=== PATIENT | female | born 1935 | race Caucasian/White ===

== ENCOUNTER 2018-03-07 22:19 | Inpatient (IN) | payer MEDICARE, OTHER ==
[~2018-03-07] VITALS: Ht 167.6 cm; Wt 79.7 kg
[2018-03-07] MEDS ORDERED: SODIUM CHLORIDE FLUSH 10ML SYR IVF ONE (23:00)
[2018-03-07] MEDS ORDERED: METOCLOPRAMIDE 5 MG/ML, 2ML IVPush ONE (23:00)
[2018-03-07] MEDS ORDERED: SODIUM CHLORIDE 0.9% 1,000ML IVBOLUS ONE (23:00)
[2018-03-07] MEDS ORDERED: METOCLOPRAMIDE 5 MG/ML, 2ML ONE (23:08)
[2018-03-07 23:23] LABS: MEAN CORPUSCULAR HEMOGLOBIN 29.8 pg (27.0-34.8); MEAN CORPUSCULAR HGB CONC 32.3 g/dL (32.4-35.8); MEAN CORPUSCULAR VOLUME 92.3 fL (80-100); MEAN PLATELET VOLUME 8.3 fL (7.4-10.4); PLATELET COUNT 202 x10^3/uL (130-400); RED BLOOD COUNT 4.52 x10^6/uL (3.82-5.3); RED CELL DISTRIBUTION WIDTH 15.3 % (9.6-15.2)
[2018-03-07] MEDS ORDERED: AMPICILLIN/SULBACTAM 3 GM in SODIUM CHLORIDE 0.9% 100 ML IV ONE (23:30)
[2018-03-07] MEDS ORDERED: VANCOMYCIN PER PHARMACY MC PRN (23:30)
[2018-03-07 23:33] LABS: ALBUMIN 3.1 g/dL (3.4-5.0); ANION GAP 8 mmol/L (5-15); CALCIUM 8.6 mg/dL (8.5-10.1); CHLORIDE 103 mmol/L (98-107); CREATININE 1.06 mg/dL (0.55-1.02)
[2018-03-07] MEDS ORDERED: PHARMACOKINETIC CONSULTATION MC ONE (23:45)
[2018-03-08] MEDS ORDERED: VANCOMYCIN 1,400 MG in SODIUM CHLORIDE 0.9% 250 ML IV ONE
[2018-03-08 00:05] LABS: BASOPHILS # (AUTO) 0.01 x10^3/uL (0-0.1); BASOPHILS % (AUTO) 0 % (0-1); EOSINOPHILS # (AUTO) 0.01 x10^3/uL (0-0.4); EOSINOPHILS % (AUTO) 0 % (1-7); LYMPHOCYTES # (AUTO) 1.06 x10^3/uL (1-3.4); LYMPHOCYTES % (AUTO) 4 % (22-44); MD SCAN; MONOCYTES # (AUTO) 1.44 x10^3/uL (0.2-0.8); MONOCYTES % (AUTO) 5 % (2-9); NEUTROPHILS # (AUTO) 26.46 x10^3/uL (1.8-6.8); NEUTROPHILS % (AUTO) 91 % (42-75)
[2018-03-08] MEDS ORDERED: OMNIPAQUE 350 MG/ML, 100ML BOTTLE ONE (00:47)
[2018-03-08] MEDS ORDERED: DIPH1TAB PO (01:01)
[2018-03-08] MEDS ORDERED: APIX2.5T PO (01:01)
[2018-03-08] MEDS ORDERED: PARO10TA3 PO (01:01)
[2018-03-08] MEDS ORDERED: CEPH-368 PO (01:01)
[2018-03-08] MEDS ORDERED: HYDR-3240 PO (01:01)
[2018-03-08] MEDS ORDERED: SOTA80TA PO (01:01)
[2018-03-08] MEDS ORDERED: LEVO25TA4 PO (01:01)
[2018-03-08] MEDS ORDERED: SODIUM CHLORIDE 0.9% 1,000ML IVBOLUS ONE (01:30)
[2018-03-08] MEDS ORDERED: SODIUM CHLORIDE 0.9% 1,000 ML IV ONE (01:55)
[2018-03-08] MEDS ORDERED: ONDANSETRON 2MG/ML, 2ML IVPush PRN (02:00)
[2018-03-08 02:07] LABS: TROPONIN I < 0.015 ng/mL (0.000-0.045)
[2018-03-08] MEDS ORDERED: hydrALAzine 20 MG/ML, 1ML IVPush PRN (02:30)
[2018-03-08] MEDS ORDERED: POLYETHYLENE GLYCOL 17 GM PACKET PO PRN (02:30)
[2018-03-08] MEDS ORDERED: BISACODYL 10 MG SUPP PR PRN (02:30)
[2018-03-08] MEDS ORDERED: ONDANSETRON ODT 4 MG PO PRN (02:30)
[2018-03-08] MEDS ORDERED: DOCUSATE 100 MG CAPSULE PO PRN (02:30)
[2018-03-08] MEDS ORDERED: morphine SULFATE 10 MG/ML, 1ML IVPush PRN (02:30)
[2018-03-08 02:37] LABS: MICROSCOPIC NOT IND
[2018-03-08 02:39] LABS: CULTURE INDICATED? NO
[2018-03-08 03:09] LABS: FREE T4 (FREE THYROXINE) 1.14 ng/dL (0.76-1.46); THYROID STIMULATING HORMONE 2.26 mIU/L (0.358-3.740)
[2018-03-08 03:30] LABS: HEMOGLOBIN A1C 5.4 % (4.2-6.3)
[2018-03-08 03:34] VITALS: BP 107/64
[2018-03-08] MEDS: SODIUM CHLORIDE 0.9% 1,000 ML IV SCH ×3 (04:52→23:28)
[2018-03-08] MEDS: PIPERACILLIN/TAZO/PMX 3.375GM 50 ML IV SCH ×4 (04:55→23:26)
[2018-03-08] MEDS: LEVOTHYROXINE 25 MCG TABLET PO SCH (05:00)
[2018-03-08 06:40] VITALS: BP 109/66
[2018-03-08 09:10] VITALS: BP 101/63
[2018-03-08] MEDS: SOTALOL 80MG TABLET PO SCH ×2 (09:15→20:34)
[2018-03-08] MEDS: PAROXETINE 10 MG TABLET PO SCH (09:15)
[2018-03-08] MEDS ORDERED: FENTANYL PF 100 MCG/2ML ONE (12:20)
[2018-03-08] MEDS ORDERED: MORPHINE SULFATE 4 MG/ML, 1ML IVPush PRN (12:30)
[2018-03-08] MEDS ORDERED: hydrALAzine 20 MG/ML, 1ML IV PRN (12:30)
[2018-03-08] MEDS ORDERED: LIDOCAINE/PF 1%, 30ML ONE (12:30)
[2018-03-08] MEDS ORDERED: OXYcodone 5 MG/5 ML ORAL.SOL UDC PO PRN (12:30)
[2018-03-08] MEDS ORDERED: ACETAMINOPHEN 325 MG TABLET PO PRN (12:30)
[2018-03-08] MEDS ORDERED: LABETALOL 5MG/ML, 20ML IV PRN (12:30)
[2018-03-08] MEDS ORDERED: EPINEPHRINE 1 MG/ML, 1ML ONE (12:30)
[2018-03-08] MEDS ORDERED: FENTANYL PF 100 MCG/2ML IV PRN (12:30)
[2018-03-08] MEDS ORDERED: ONDANSETRON ODT 8 MG PO PRN (12:30)
[2018-03-08] MEDS ORDERED: PROMETHAZINE 12.5 MG SUPP PR PRN (12:30)
[2018-03-08] MEDS ORDERED: HYDROmorphone 1 MG/ML, 1ML IV PRN (12:30)
[2018-03-08] MEDS ORDERED: BACITRACIN 50,000 UNIT ONE (12:31)
[2018-03-08] MEDS ORDERED: DEXAMETHASONE 4 MG/ML, 1ML ONE (13:11)
[2018-03-08] MEDS ORDERED: PROPOFOL 10 MG/ML, 20ML ONE (13:13)
[2018-03-08] MEDS ORDERED: KETOROLAC 30 MG/1 ML ONE (13:18)
[2018-03-08] MEDS ORDERED: ONDANSETRON 2MG/ML, 2ML ONE (13:20)
[2018-03-08] MEDS ORDERED: EPHEDRINE 50 MG/ML, 1ML ONE (14:33)
[2018-03-08] MEDS ORDERED: EPHEDRINE 50 MG/ML, 1ML IVPush ONE (15:00)
[2018-03-08 20:00] VITALS: BP 98/61
[2018-03-09 02:00] VITALS: BP 96/60
[2018-03-09] MEDS: PIPERACILLIN/TAZO/PMX 3.375GM 50 ML IV SCH ×3 (05:20→18:40)
[2018-03-09] MEDS: LEVOTHYROXINE 25 MCG TABLET PO SCH (05:20)
[2018-03-09 05:38] LABS: MEAN CORPUSCULAR HEMOGLOBIN 30.4 pg (27.0-34.8); MEAN CORPUSCULAR HGB CONC 32.5 g/dL (32.4-35.8); MEAN CORPUSCULAR VOLUME 93.3 fL (80-100); MEAN PLATELET VOLUME 8.5 fL (7.4-10.4); PLATELET COUNT 148 x10^3/uL (130-400); RED BLOOD COUNT 3.64 x10^6/uL (3.82-5.3); RED CELL DISTRIBUTION WIDTH 15.2 % (9.6-15.2)
[2018-03-09 05:47] LABS: ALBUMIN 2.2 g/dL (3.4-5.0); ANION GAP 8 mmol/L (5-15); CALCIUM 8.1 mg/dL (8.5-10.1); CHLORIDE 111 mmol/L (98-107)
[2018-03-09 05:51] LABS: ALANINE AMINOTRANSFERASE 52 U/L (12-78); ALKALINE PHOSPHATASE 116 U/L (45-117); BILIRUBIN,TOTAL 0.6 mg/dL (0.2-1.0); CHOL/HDL RATIO 2.3; CHOLESTEROL, TOTAL 105 mg/dL (140-239); CREATININE 0.74 mg/dL (0.55-1.02); HDL CHOL % 44 % (28-40); HDL CHOLESTEROL (DIRECT) 46 mg/dL (40-60); LDL CHOLESTEROL,CALCULATED 43 mg/dL (54-169); LDL/HDL RATIO 0.9 (0.5-3.0); TOTAL PROTEIN 5.4 g/dL (6.4-8.2); TRIGLYCERIDES 78 mg/dL (50-200); VLDL CHOLESTEROL 16 mg/dL (0-25)
[2018-03-09 06:08] LABS: MD YES
[2018-03-09 06:10] LABS: <RBC MORPHOLOGY> NORMAL; BAND#(MANUAL) 2.37 x10^3/uL; BANDS%(MANUAL) 11 % (0-7); LYMPH#(MANUAL) 1.94 x10^3/uL (1-3.4); LYMPHS% (MANUAL) 9 % (22-44); MONOS#(MANUAL) 0.65 x10^3/uL (0.3-2.7); MONOS% (MANUAL) 3 % (2-9); SEG#(MANUAL) 16.56 x10^3/uL (1.8-6.8); SEGS% (MANUAL) 77 % (42-75)
[2018-03-09 06:11] LABS: <PLATELET ESTIMATE> ADEQUATE; <PLT MORPHOLOGY> NORMAL PLT MORPH
[2018-03-09 07:10] VITALS: BP 102/58
[2018-03-09 09:25] VITALS: BP 109/68
[2018-03-09] MEDS: ENOXAPARIN 40 MG/0.4 ML SQ SCH (09:25)
[2018-03-09] MEDS: SODIUM CHLORIDE 0.9% 1,000 ML IV SCH (09:25)
[2018-03-09] MEDS: SOTALOL 80MG TABLET PO SCH ×2 (09:26→20:57)
[2018-03-09] MEDS: PAROXETINE 10 MG TABLET PO SCH (09:26)
[2018-03-09 15:51] VITALS: BP 120/74
[2018-03-09 20:00] VITALS: BP 127/78
[2018-03-09] MEDS: ACETAMINOPHEN 325 MG TABLET PO PRN (23:57)
[2018-03-10] MEDS: PIPERACILLIN/TAZO/PMX 3.375GM 50 ML IV SCH ×3 (00:38→17:11)
[2018-03-10] MEDS: SODIUM CHLORIDE 0.9% 1,000 ML IV SCH ×2 (00:39→17:12)
[2018-03-10 02:00] VITALS: BP 123/73
[2018-03-10] MEDS: ACETAMINOPHEN 325 MG TABLET PO PRN (04:10)
[2018-03-10] MEDS: LEVOTHYROXINE 25 MCG TABLET PO SCH (05:27)
[2018-03-10 06:02] LABS: BASOPHILS # (AUTO) 0.02 x10^3/uL (0-0.1); BASOPHILS % (AUTO) 0 % (0-1); EOSINOPHILS # (AUTO) 0.35 x10^3/uL (0-0.4); EOSINOPHILS % (AUTO) 3 % (1-7); LYMPHOCYTES # (AUTO) 1.94 x10^3/uL (1-3.4); LYMPHOCYTES % (AUTO) 16 % (22-44); MD NO; MEAN CORPUSCULAR HEMOGLOBIN 30.9 pg (27.0-34.8); MEAN CORPUSCULAR HGB CONC 32.9 g/dL (32.4-35.8); MEAN CORPUSCULAR VOLUME 94.1 fL (80-100); MEAN PLATELET VOLUME 8.7 fL (7.4-10.4); MONOCYTES # (AUTO) 0.53 x10^3/uL (0.2-0.8); MONOCYTES % (AUTO) 4 % (2-9); NEUTROPHILS # (AUTO) 9.31 x10^3/uL (1.8-6.8); NEUTROPHILS % (AUTO) 77 % (42-75); PLATELET COUNT 184 x10^3/uL (130-400); RED BLOOD COUNT 3.89 x10^6/uL (3.82-5.3); RED CELL DISTRIBUTION WIDTH 15.9 % (9.6-15.2)
[2018-03-10 06:26] LABS: HEMOGLOBIN A1C 5.4 % (4.2-6.3)
[2018-03-10 07:45] VITALS: BP 130/78
[2018-03-10] MEDS: ENOXAPARIN 40 MG/0.4 ML SQ SCH (07:46)
[2018-03-10] MEDS: SOTALOL 80MG TABLET PO SCH ×2 (07:46→21:49)
[2018-03-10] MEDS: PAROXETINE 10 MG TABLET PO SCH (07:46)
[2018-03-10 15:13] VITALS: BP 150/76
[2018-03-10] MEDS: LACTOBACILLUS CHEW TABLET PO SCH ×2 (17:11→21:49)
[2018-03-10 20:00] VITALS: BP 146/79
[2018-03-10] MEDS: TEMAZEPAM 15 MG CAPSULE PO PRN (21:48)
[2018-03-10] MEDS: ONDANSETRON 2MG/ML, 2ML IVPush PRN (21:49)
[2018-03-11] MEDS: PIPERACILLIN/TAZO/PMX 3.375GM 50 ML IV SCH ×5 (00:05→23:49)
[2018-03-11 02:00] VITALS: BP 132/80
[2018-03-11] MEDS: LEVOTHYROXINE 25 MCG TABLET PO SCH (05:39)
[2018-03-11 08:00] VITALS: BP 146/83
[2018-03-11] MEDS: ENOXAPARIN 40 MG/0.4 ML SQ SCH (08:29)
[2018-03-11] MEDS: LACTOBACILLUS CHEW TABLET PO SCH ×3 (08:30→21:39)
[2018-03-11] MEDS: SOTALOL 80MG TABLET PO SCH ×2 (08:30→21:40)
[2018-03-11] MEDS: PAROXETINE 10 MG TABLET PO SCH (08:30)
[2018-03-11] MEDS: ONDANSETRON 2MG/ML, 2ML IVPush PRN ×2 (08:39→21:43)
[2018-03-11 10:41] LABS: CLOSTRIDIUM DIFFICILE ANTIGEN NEGATIVE; CLOSTRIDIUM DIFFICILE TOXIN NEGATIVE (Negative)
[2018-03-11] MEDS: SODIUM CHLORIDE 0.9% 1,000 ML IV SCH (11:12)
[2018-03-11 15:06] VITALS: BP 139/71
[2018-03-11 20:11] VITALS: BP 144/80
[2018-03-11] MEDS: TEMAZEPAM 15 MG CAPSULE PO PRN (21:40)
[2018-03-12 01:20] VITALS: BP 136/75
[2018-03-12] MEDS: SODIUM CHLORIDE 0.9% 1,000 ML IV SCH ×2 (02:37→20:14)
[2018-03-12] MEDS: ACETAMINOPHEN 325 MG TABLET PO PRN (03:44)
[2018-03-12] MEDS: PIPERACILLIN/TAZO/PMX 3.375GM 50 ML IV SCH (05:15)
[2018-03-12] MEDS: LEVOTHYROXINE 25 MCG TABLET PO SCH (05:18)
[2018-03-12] MEDS: OXYcodone IR 5MG TABLET PO PRN (06:11)
[2018-03-12] MEDS ORDERED: CEFAZOLIN 1,000 MG IM SCH (08:00)
[2018-03-12] MEDS: PAROXETINE 10 MG TABLET PO SCH (09:18)
[2018-03-12] MEDS: LACTOBACILLUS CHEW TABLET PO SCH ×3 (09:18→20:14)
[2018-03-12] MEDS: SOTALOL 80MG TABLET PO SCH ×2 (09:18→20:14)
[2018-03-12] MEDS: ENOXAPARIN 40 MG/0.4 ML SQ SCH (09:18)
[2018-03-12 12:27] VITALS: BP 162/82
[2018-03-12] MEDS: ERTAPENEM 1 GM in SODIUM CHLORIDE 0.9% 50 ML IV SCH (15:46)
[2018-03-12] MEDS ORDERED: DIPHENOXYLATE/ATROPINE TABLET PO PRN (16:30)
[2018-03-12 19:57] VITALS: BP 150/72
[2018-03-12] MEDS: TEMAZEPAM 15 MG CAPSULE PO PRN (21:21)
[2018-03-13 02:03] VITALS: BP 139/67
[2018-03-13] MEDS: OXYcodone IR 5MG TABLET PO PRN (02:55)
[2018-03-13] MEDS: LEVOTHYROXINE 25 MCG TABLET PO SCH (05:28)
[2018-03-13 08:12] VITALS: BP 171/91
[2018-03-13] MEDS: LACTOBACILLUS CHEW TABLET PO SCH (09:10)
[2018-03-13] MEDS: SOTALOL 80MG TABLET PO SCH (09:11)
[2018-03-13] MEDS: PAROXETINE 10 MG TABLET PO SCH (09:11)
[2018-03-13] MEDS: ENOXAPARIN 40 MG/0.4 ML SQ SCH (09:11)
[2018-03-13] MEDS: ERTAPENEM 1 GM in SODIUM CHLORIDE 0.9% 50 ML IV SCH (09:11)
[2018-03-13] MEDS: SODIUM CHLORIDE 0.9% 1,000 ML IV SCH (12:00)
[2018-03-13] MEDS ORDERED: DIPH1TAB6 PO (12:37)
[2018-03-13] MEDS ORDERED: ACID1TAB7 PO (12:37)
[2018-03-13] MEDS ORDERED: ACET325T14 PO (12:37)
== END 2018-03-13 14:12 | disposition home or self-care (01) | DRG 856 ==
LOC: ED 03-08 00:07 → EDIP 03-08 01:55 → 4WST 03-08 02:53
PROVIDERS: ADMIT Internal Medicine; ATTEND Internal Medicine
PROC: 0JB60ZZ Excision of Chest Subcutaneous Tissue and Fascia, Open Approach (ICD-10-PCS; principal; 2018-03-08 13:15)
PROC: 02HV33Z Insertion of Infusion Device into Superior Vena Cava, Percutaneous Approach (ICD-10-PCS; 2018-03-12)
PROC: B5181ZA Fluoroscopy of Superior Vena Cava using Low Osmolar Contrast, Guidance (ICD-10-PCS; 2018-03-12)
PROC: B548ZZA Ultrasonography of Superior Vena Cava, Guidance (ICD-10-PCS; 2018-03-12)
DX: T81.4XXA Infection following a procedure, initial encounter (principal); A41.9 Sepsis, unspecified organism; N17.0 Acute kidney failure with tubular necrosis; R65.20 Severe sepsis without septic shock; L02.213 Cutaneous abscess of chest wall; D68.59 Other primary thrombophilia; E44.1 Mild protein-calorie malnutrition; L03.313 Cellulitis of chest wall; L76.34 Postprocedural seroma of skin and subcutaneous tissue following other procedure; N61.1 Abscess of the breast and nipple; R73.9 Hyperglycemia, unspecified; Y83.8 Other surgical procedures as the cause of abnormal reaction of the patient, or of later complication, without mention of misadventure at the time of the procedure; B95.61 Methicillin susceptible Staphylococcus aureus infection as the cause of diseases classified elsewhere; E03.9 Hypothyroidism, unspecified; G47.00 Insomnia, unspecified; I48.2 Chronic atrial fibrillation; N95.1 Menopausal and female climacteric states; Z79.01 Long term (current) use of anticoagulants; Z79.2 Long term (current) use of antibiotics; Z90.13 Acquired absence of bilateral breasts and nipples; Z85.3 Personal history of malignant neoplasm of breast; Z90.710 Acquired absence of both cervix and uterus; Z92.21 Personal history of antineoplastic chemotherapy; Z92.3 Personal history of irradiation; Z98.82 Breast implant status; Y92.89 Other specified places as the place of occurrence of the external cause; Z88.2 Allergy status to sulfonamides; Z88.8 Allergy status to other drugs, medicaments and biological substances; Z91.041 Radiographic dye allergy status; Z79.899 Other long term (current) drug therapy; Z90.49 Acquired absence of other specified parts of digestive tract; Z68.28 Body mass index [BMI] 28.0-28.9, adult
CPT/HCPCS: 36415; 36569; 71045; 71260; 76937; 77001; 80048; 80053; 80061; 81003; 82040; 83036; 83605; 83735; 84145; 84439; 84443; 84484; 85025; 87040; 87070; 87075; 87077; 87186; 87205; 87324; 93005; 96365; 96375; J0171; J0295; J0690; J1100; J1335; J1650; J1885; J2405; J2543; J2704; J3010; J3370; J3490; Q0162; Q9967; C1751; J2765; J7030; J7050

== ENCOUNTER 2019-02-27 21:49 | Inpatient (IN) | payer MEDICARE ==
[~2019-02-27] VITALS: Ht 170.2 cm; Wt 80.0 kg
[~2019-02-27 21:49] MED LIST: ACET325T14 PO; ACID1TAB7 PO; APIX2.5T PO; CEPH-368 PO; DIPH1TAB PO; DIPH1TAB6 PO; HYDR-3240 PO; LEVO25TA4 PO; PARO10TA3 PO; SOTA80TA PO
[2019-02-27] MEDS ORDERED: HYDROcodone/APAP 10/325 MG TABLET ONE (22:39)
--- NOTE | 2019-02-27 22:43 | NUR ---
REPORT RECEIVED FROM DARIN AMADOR.
[2019-02-27] MEDS ORDERED: HYDROcodone/APAP 10/325 MG TABLET PO ONE (23:00)
--- NOTE | 2019-02-27 23:18 | NUR ---
PT IN XRAY NOW.
--- NOTE | 2019-02-27 23:39 | NUR ---
PT REQUESTING PAIN MED. PT'S PAIN LEVEL IS 9/10 AT THIS TIME. PA NOTIFIED.
[2019-02-28] MEDS ORDERED: OXYcodone/APAP 10/325MG TABLET PO ONE
[2019-02-28] MEDS ORDERED: OXYcodone/APAP 10/325MG TABLET ONE (00:06)
[2019-02-28 00:22] LABS: BASOPHILS # (AUTO) 0.05 x10^3/uL (0-0.1); BASOPHILS % (AUTO) 0 % (0-1); EOSINOPHILS # (AUTO) 0.04 x10^3/uL (0-0.4); EOSINOPHILS % (AUTO) 0 % (1-7); LYMPHOCYTES # (AUTO) 1.11 x10^3/uL (1-3.4); LYMPHOCYTES % (AUTO) 7 % (22-44); MD NO; MEAN CORPUSCULAR HEMOGLOBIN 29.9 pg (27.0-34.8); MEAN CORPUSCULAR HGB CONC 31.7 g/dL (32.4-35.8); MEAN CORPUSCULAR VOLUME 94.5 fL (80-100); MEAN PLATELET VOLUME 8.3 fL (7.4-10.4); MONOCYTES # (AUTO) 0.54 x10^3/uL (0.2-0.8); MONOCYTES % (AUTO) 3 % (2-9); NEUTROPHILS # (AUTO) 15.37 x10^3/uL (1.8-6.8); NEUTROPHILS % (AUTO) 90 % (42-75); PLATELET COUNT 232 x10^3/uL (130-400); RED BLOOD COUNT 4.85 x10^6/uL (3.82-5.3); RED CELL DISTRIBUTION WIDTH 16.2 % (9.6-15.2)
[2019-02-28 00:30] LABS: ALANINE AMINOTRANSFERASE 44 U/L (12-78); ALBUMIN 3.7 g/dL (3.4-5.0); ANION GAP 9 mmol/L (5-15); CALCIUM 8.6 mg/dL (8.5-10.1); CHLORIDE 109 mmol/L (98-107); CREATININE 0.76 mg/dL (0.55-1.02)
[2019-02-28 00:32] LABS: ALKALINE PHOSPHATASE 144 U/L (45-117); BILIRUBIN,TOTAL 0.5 mg/dL (0.2-1.0); TOTAL PROTEIN 7.1 g/dL (6.4-8.2)
[2019-02-28] MEDS ORDERED: SODIUM CHLORIDE 0.9% 1,000 ML IV ONE (01:08)
[2019-02-28] MEDS ORDERED: MORPHINE SULFATE 4 MG/ML, 1ML ONE (01:24)
[2019-02-28] MEDS ORDERED: ONDANSETRON 2MG/ML, 2ML IVPush PRN ×2 (01:30→05:30)
[2019-02-28] MEDS ORDERED: MORPHINE SULFATE 4 MG/ML, 1ML IVPush PRN (01:30)
[2019-02-28] MEDS ORDERED: ONDANSETRON 2MG/ML, 2ML ONE (01:38)
[2019-02-28 02:17] VITALS: BP 109/71
[2019-02-28] MEDS: morphine SULFATE 10 MG/ML, 1ML IVPush PRN ×3 (06:42→21:03)
[2019-02-28 08:50] VITALS: BP 104/68
[2019-02-28] MEDS ORDERED: PANT40TA3 PO (09:35)
[2019-02-28] MEDS: D5%-0.45NACL+KCL 20MEQ 1,000 ML IV SCH (09:42)
[2019-02-28] MEDS: SOTALOL 80MG TABLET PO SCH ×2 (10:03→21:03)
[2019-02-28] MEDS: LACTOBACILLUS CHEW TABLET PO SCH ×3 (10:03→21:03)
[2019-02-28] MEDS: PAROXETINE 10 MG TABLET PO SCH (10:03)
[2019-02-28] MEDS: PANTOPROZOLE 40MG TABLET PO SCH (10:04)
[2019-02-28] MEDS: LEVOTHYROXINE 100 MCG TABLET PO SCH (10:04)
[2019-02-28 10:28] LABS: INTERNATIONAL NORMALIZED RATIO 0.98 (0.93-1.1); PROTHROMBIN TIME 10.3 Seconds (9.6-11.5)
[2019-02-28] MEDS: DOCUSATE 100 MG CAPSULE PO SCH ×2 (12:04→21:04)
[2019-02-28 13:56] VITALS: BP 137/78
[2019-02-28] MEDS: HYDROcodone/APAP 5/325 TABLET PO PRN ×2 (18:10→22:49)
[2019-02-28 20:10] VITALS: BP 112/57
[2019-03-01 02:18] VITALS: BP 112/60
[2019-03-01] MEDS: D5%-0.45NACL+KCL 20MEQ 1,000 ML IV SCH ×2 (03:39→04:00)
[2019-03-01] MEDS: HYDROcodone/APAP 5/325 TABLET PO PRN ×2 (06:18→10:14)
[2019-03-01 07:47] VITALS: BP 117/59
[2019-03-01] MEDS: DOCUSATE 100 MG CAPSULE PO SCH ×2 (07:59→21:00)
[2019-03-01] MEDS: SOTALOL 80MG TABLET PO SCH ×2 (07:59→21:00)
[2019-03-01] MEDS: LACTOBACILLUS CHEW TABLET PO SCH ×3 (07:59→21:00)
[2019-03-01] MEDS: PAROXETINE 10 MG TABLET PO SCH (07:59)
[2019-03-01] MEDS: PANTOPROZOLE 40MG TABLET PO SCH (08:00)
[2019-03-01] MEDS: LEVOTHYROXINE 100 MCG TABLET PO SCH (08:00)
[2019-03-01] MEDS ORDERED: ONDANSETRON 2MG/ML, 2ML ONE (10:25)
[2019-03-01] MEDS ORDERED: CEFAZOLIN 1,000 MG ONE (10:25)
[2019-03-01] MEDS ORDERED: SUCCINYLCHOLINE 20 MG/ML, 10ML ONE (10:25)
[2019-03-01] MEDS ORDERED: PROPOFOL 10 MG/ML, 20ML ONE (10:25)
[2019-03-01] MEDS ORDERED: EPHEDRINE 50 MG/ML, 1ML ONE (10:25)
[2019-03-01] MEDS ORDERED: DEXAMETHASONE 4 MG/ML, 1ML ONE (10:25)
[2019-03-01 15:16] VITALS: BP 104/63
[2019-03-01] MEDS: morphine SULFATE 10 MG/ML, 1ML IVPush PRN (16:35)
[2019-03-01] MEDS ORDERED: VANCOMYCIN 1,000 MG ONE (17:24)
[2019-03-01] MEDS ORDERED: FENTANYL PF 250 MCG/5ML ONE (17:58)
[2019-03-01] MEDS ORDERED: HYDROmorphone 2 MG/ML, 1ML IVPush PRN (19:30)
[2019-03-01] MEDS ORDERED: FENTANYL PF 100 MCG/2ML IV PRN (19:30)
[2019-03-01] MEDS ORDERED: ACETAMINOPHEN 325 MG TABLET PO PRN (19:30)
[2019-03-01] MEDS ORDERED: hydrALAzine 20 MG/ML, 1ML IV PRN (19:30)
[2019-03-01] MEDS ORDERED: LABETALOL 5MG/ML, 20ML IV PRN (19:30)
[2019-03-01] MEDS ORDERED: PROMETHAZINE 25 MG/ML, 1ML IV PRN (19:30)
[2019-03-01] MEDS ORDERED: KETOROLAC 30 MG/1 ML IV PRN (19:30)
[2019-03-01] MEDS ORDERED: ALBUTEROL SULFATE 2.5 MG/3 ML NPPB PRN (19:30)
[2019-03-01] MEDS ORDERED: OXYcodone 5 MG/5 ML ORAL.SOL UDC PO PRN (19:30)
[2019-03-01] MEDS ORDERED: OXYcodone 5 MG/5 ML ORAL.SOL UDC ONE (20:09)
[2019-03-01] MEDS ORDERED: FENTANYL PF 100 MCG/2ML ONE (20:09)
[2019-03-02] VITALS: BP 97/61
[2019-03-02 02:05] VITALS: BP 105/70
[2019-03-02] MEDS: CEFAZOLIN PMX 2GM/50ML 50 ML IVPB SCH ×2 (02:07→10:20)
[2019-03-02] MEDS: HYDROcodone/APAP 5/325 TABLET PO PRN ×5 (03:08→20:49)
[2019-03-02] MEDS: D5%-0.45NACL+KCL 20MEQ 1,000 ML IV SCH ×3 (03:10→20:00)
[2019-03-02] MEDS: ENOXAPARIN 40 MG/0.4 ML SQ SCH (05:28)
[2019-03-02 05:51] LABS: ALBUMIN 2.6 g/dL (3.4-5.0); ANION GAP 5 mmol/L (5-15); CALCIUM 7.8 mg/dL (8.5-10.1); CHLORIDE 109 mmol/L (98-107); CREATININE 0.58 mg/dL (0.55-1.02)
[2019-03-02 06:13] LABS: BASOPHILS % (AUTO) 0 % (0-1); EOSINOPHILS % (AUTO) 0 % (1-7); LYMPHOCYTES # (AUTO) 0.97 x10^3/uL (1-3.4); LYMPHOCYTES % (AUTO) 9 % (22-44); MD NO; MEAN CORPUSCULAR HEMOGLOBIN 30.6 pg (27.0-34.8); MEAN CORPUSCULAR HGB CONC 32.3 g/dL (32.4-35.8); MEAN CORPUSCULAR VOLUME 94.6 fL (80-100); MEAN PLATELET VOLUME 8.5 fL (7.4-10.4); MONOCYTES % (AUTO) 5 % (2-9); NEUTROPHILS # (AUTO) 8.86 x10^3/uL (1.8-6.8); NEUTROPHILS % (AUTO) 86 % (42-75); PLATELET COUNT 146 x10^3/uL (130-400); RED BLOOD COUNT 3.76 x10^6/uL (3.82-5.3); RED CELL DISTRIBUTION WIDTH 16.3 % (9.6-15.2)
[2019-03-02 06:54] VITALS: BP 100/63
[2019-03-02] MEDS: PANTOPROZOLE 40MG TABLET PO SCH (08:38)
[2019-03-02] MEDS: LACTOBACILLUS CHEW TABLET PO SCH ×3 (08:39→20:49)
[2019-03-02] MEDS: LEVOTHYROXINE 100 MCG TABLET PO SCH (08:39)
[2019-03-02] MEDS: SOTALOL 80MG TABLET PO SCH ×2 (08:39→20:48)
[2019-03-02] MEDS: PAROXETINE 10 MG TABLET PO SCH (08:39)
[2019-03-02] MEDS: DOCUSATE 100 MG CAPSULE PO SCH ×2 (08:40→20:48)
[2019-03-02 12:37] VITALS: BP 96/62
[2019-03-02 19:49] VITALS: BP 111/69
[2019-03-02] MEDS ORDERED: METHOCARBAMOL 500 MG TABLET ONE (22:21)
[2019-03-02] MEDS: METHOCARBAMOL 500 MG TABLET PO PRN (22:23)
[2019-03-03] MEDS: HYDROcodone/APAP 5/325 TABLET PO PRN ×5 (02:27→20:54)
[2019-03-03 02:29] VITALS: BP 102/66
[2019-03-03] MEDS: ENOXAPARIN 40 MG/0.4 ML SQ SCH (06:14)
[2019-03-03 06:58] VITALS: BP 96/61
[2019-03-03] MEDS: DOCUSATE 100 MG CAPSULE PO SCH ×2 (07:47→20:53)
[2019-03-03] MEDS: PANTOPROZOLE 40MG TABLET PO SCH (07:47)
[2019-03-03] MEDS: LEVOTHYROXINE 100 MCG TABLET PO SCH (07:47)
[2019-03-03] MEDS: LACTOBACILLUS CHEW TABLET PO SCH ×3 (07:47→20:54)
[2019-03-03] MEDS: POLYETHYLENE GLYCOL 17 GM PACKET PO PRN (07:48)
[2019-03-03] MEDS: PAROXETINE 10 MG TABLET PO SCH (07:48)
[2019-03-03 07:52] VITALS: BP 97/61
[2019-03-03] MEDS: SOTALOL 80MG TABLET PO SCH ×2 (07:52→20:54)
[2019-03-03] MEDS: METHOCARBAMOL 500 MG TABLET PO PRN ×3 (09:23→23:05)
[2019-03-03 14:02] VITALS: BP 102/66
[2019-03-03 19:43] VITALS: BP 113/70
[2019-03-04] MEDS: HYDROcodone/APAP 5/325 TABLET PO PRN ×4 (01:03→22:59)
[2019-03-04 02:50] VITALS: BP 122/70
[2019-03-04] MEDS: ENOXAPARIN 40 MG/0.4 ML SQ SCH (05:05)
[2019-03-04 07:03] VITALS: BP 104/65
[2019-03-04] MEDS: LACTOBACILLUS CHEW TABLET PO SCH ×3 (09:39→20:37)
[2019-03-04] MEDS: PAROXETINE 10 MG TABLET PO SCH (09:39)
[2019-03-04] MEDS: PANTOPROZOLE 40MG TABLET PO SCH (09:39)
[2019-03-04] MEDS: DOCUSATE 100 MG CAPSULE PO SCH ×2 (09:39→20:37)
[2019-03-04] MEDS: LEVOTHYROXINE 100 MCG TABLET PO SCH (09:39)
[2019-03-04 09:42] VITALS: BP 107/60
[2019-03-04] MEDS: SOTALOL 80MG TABLET PO SCH ×2 (09:57→20:37)
[2019-03-04] MEDS: POLYETHYLENE GLYCOL 17 GM PACKET PO PRN (09:57)
[2019-03-04] MEDS: METHOCARBAMOL 500 MG TABLET PO PRN ×3 (09:57→22:59)
[2019-03-04 13:06] VITALS: BP 99/61
[2019-03-04 19:05] VITALS: BP 118/75
[2019-03-05 02:39] VITALS: BP 117/74
[2019-03-05] MEDS: HYDROcodone/APAP 5/325 TABLET PO PRN ×4 (03:02→19:36)
[2019-03-05] MEDS: METHOCARBAMOL 500 MG TABLET PO PRN ×3 (05:21→21:14)
[2019-03-05] MEDS: ENOXAPARIN 40 MG/0.4 ML SQ SCH (05:21)
[2019-03-05 07:27] VITALS: BP 119/76
[2019-03-05] MEDS: SOTALOL 80MG TABLET PO SCH ×2 (08:12→21:14)
[2019-03-05] MEDS: PANTOPROZOLE 40MG TABLET PO SCH (08:12)
[2019-03-05] MEDS: PAROXETINE 10 MG TABLET PO SCH (08:12)
[2019-03-05] MEDS: LACTOBACILLUS CHEW TABLET PO SCH ×3 (08:12→21:14)
[2019-03-05] MEDS: DOCUSATE 100 MG CAPSULE PO SCH ×2 (08:13→21:17)
[2019-03-05] MEDS: LEVOTHYROXINE 100 MCG TABLET PO SCH (08:13)
[2019-03-05 13:50] VITALS: BP 118/71
[2019-03-05 21:10] VITALS: BP 108/71
[2019-03-06] MEDS: HYDROcodone/APAP 5/325 TABLET PO PRN ×6 (00:10→17:59)
[2019-03-06 00:27] VITALS: BP 121/74
[2019-03-06] MEDS: ENOXAPARIN 40 MG/0.4 ML SQ SCH (05:50)
[2019-03-06 07:02] VITALS: BP 118/75
[2019-03-06] MEDS: DOCUSATE 100 MG CAPSULE PO SCH (08:40)
[2019-03-06] MEDS: PANTOPROZOLE 40MG TABLET PO SCH (08:41)
[2019-03-06] MEDS: SOTALOL 80MG TABLET PO SCH (08:41)
[2019-03-06] MEDS: LEVOTHYROXINE 100 MCG TABLET PO SCH (08:41)
[2019-03-06] MEDS: PAROXETINE 10 MG TABLET PO SCH (08:41)
[2019-03-06] MEDS: LACTOBACILLUS CHEW TABLET PO SCH ×2 (08:41→15:57)
[2019-03-06 11:46] VITALS: BP 126/75
== END 2019-03-06 17:35 | DRG 470 ==
LOC: ED 22:45 → EDIP 02-28 01:08 → 4NOR 02-28 01:50
PROVIDERS: ADMIT Family Medicine; ATTEND Family Medicine
PROC: 0SRS0J9 Replacement of Left Hip Joint, Femoral Surface with Synthetic Substitute, Cemented, Open Approach (ICD-10-PCS; principal; 2019-02-28)
DX: S72.012A Unspecified intracapsular fracture of left femur, initial encounter for closed fracture (principal); D68.69 Other thrombophilia; I48.91 Unspecified atrial fibrillation; E03.9 Hypothyroidism, unspecified; R33.8 Other retention of urine; D72.829 Elevated white blood cell count, unspecified; W01.0XXA Fall on same level from slipping, tripping and stumbling without subsequent striking against object, initial encounter; Z82.49 Family history of ischemic heart disease and other diseases of the circulatory system; Z83.3 Family history of diabetes mellitus; Z85.3 Personal history of malignant neoplasm of breast; Z90.13 Acquired absence of bilateral breasts and nipples; Z90.710 Acquired absence of both cervix and uterus; Z92.21 Personal history of antineoplastic chemotherapy; Z92.3 Personal history of irradiation; Y93.89 Activity, other specified; Y92.89 Other specified places as the place of occurrence of the external cause; Y99.8 Other external cause status; Z88.2 Allergy status to sulfonamides; Z88.8 Allergy status to other drugs, medicaments and biological substances; Z90.49 Acquired absence of other specified parts of digestive tract
CPT/HCPCS: 36415; 71045; 72170; 80048; 80053; 82040; 85025; 85610; 85730; 86850; 86900; 93005; 96374; 96375; C1713; G0378; J0690; J1100; J1650; J2405; J2704; J3010; J3370; C1762; C1776; J0330; J2270; J3480